=== PATIENT | male | born 1955 ===

== ENCOUNTER → 2018-04-16 | Outpatient (CLI) | payer OTHER ==
[~2018-04-16] MED LIST: APIX2.5T PO; ASPI81TA94 PO; ATOR40TA24 PO; DUTA0.5C4; FEBU40TA2 PO; FOLI-68 PO; GABA-549 PO; METO25TA23 PO; PANT40TA65 PO; SITA50TA6 PO; VIT-9 PO; VITA1CAP46 PO; [UNRECOGNIZED DRUG - CODE] PO
== END ==
LOC: LAB 11:53
PROVIDERS: ATTEND Otolaryngology
DX: R22.1 Localized swelling, mass and lump, neck (principal)
CPT/HCPCS: 36415; 82565